=== PATIENT | female | born 1990 | race Caucasian/White ===

== ENCOUNTER 2024-09-27 06:20 | Day surgery (SDC) | payer OTHER, SELFPAY | END 2024-09-27 11:00 | disposition home or self-care (01) | LOC: GI 06:20 | PROVIDERS: ATTENDING PHYSICIAN Internal Medicine | DX: K62.89 Other specified diseases of anus and rectum (principal); K58.0 Irritable bowel syndrome with diarrhea | CPT/HCPCS: 45380; 88305 ==